=== PATIENT | female | born 1965 | race African-American/Black ===

== ENCOUNTER 2016-10-06 13:56 | Emergency (ER) | payer OTHER ==
[~2016-10-06] VITALS: Ht 165.1 cm; Wt 65.8 kg
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
[~2016-10-06 13:56] MED LIST: BACTRIM DS TABL1 TA1 PO; BACTROBAN22 GM TOP; BACTROBAN22 GM TP; BETAMETHASONE D30 ML TOP; BP MED; IBUPROFEN600 MG PO; MEDROL4 MG/DOSE- PO; NAPROSYN500 MG PO; STERAPRED5 MG/DOSE1; TRIAMCINOLONE AC1 GM TD; VISTARIL PO; [UNRECOGNIZED DRUG - OTHER]
[2016-10-06] MEDS ORDERED: DOXEPIN HCL25 MG PO (14:42)
[2016-10-06] MEDS ORDERED: FLUOXETINE HCL40 M1 PO (14:42)
[2016-10-06] MEDS ORDERED: NEURONTIN800 MG PO (14:42)
[2016-10-06] MEDS ORDERED: PATIENT'S PHARMACY (14:42)
[2016-10-06] MEDS ORDERED: SEROQUEL PO (14:43)
[2016-10-06] MEDS ORDERED: HYDROXYZINE HCL25 M1 PO (14:43)
[2016-10-06 15:08] LABS: BASOPHIL# 0.1 X10e3 (0-0.3); BASOPHIL% 0.8 % (0-2.5); EOSINOPHIL# 0.1 X10e3 (0-0.7); EOSINOPHIL% 0.9 % (0.0-7.0); HEMATOCRIT 32.7 % (35.0-45.0); HEMOGLOBIN 10.6 gm/dL (12.0-16.0); LYMPHOCYTE# 2.1 X10e3 (1.0-3.5); LYMPHOCYTE% 22.9 % (17.0-45.0); MEAN CELL VOLUME 87.5 FL (83-96); MEAN CORPUSCULAR HEMOGLOBIN 28.3 PG (28-34); MEAN CORPUSCULAR HGB CONC 32.4 g/dL (30-36); MEAN PLATELET VOLUME 8.1 FL (6.5-11.5); MONOCYTE# 0.4 X10e3 (0-1.0); MONOCYTE% 4.7 % (3.0-12.0); NEUTROPHIL# 6.6 X10e3 (1.5-7.1); NEUTROPHIL% 70.7 % (40-75); PLATELET COUNT 357 X10e3 (140-420); RED BLOOD COUNT 3.74 X10e (3.90-5.30); WHITE BLOOD COUNT 9.3 X10e3 (4.0-10.5)
[2016-10-06 15:09] LABS: DIFF IND NO
[2016-10-06 15:33] LABS: ALBUMIN SERUM 4.2 g/dL (3.5-5.0); BILIRUBIN, DIRECT 0.1 mg/dL (0.0-0.2); BILIRUBIN,INDIRECT 0.5 mg/dL (0.0-0.9); BILIRUBIN,TOTAL 0.6 mg/dL (0.2-2.0); BUN/CREATININE RATIO 23.33; CALCIUM SERUM 8.8 mg/dL (8.4-10.2); CREATININE SERUM 0.6 mg/dL (0.6-1.4); GLOM FILT RATE Estimated 121.5 mL/min (>60); POTASSIUM 3.3 mmol/L (3.5-5.1); PROTEIN TOTAL SERUM 8.1 g/dL (6.0-8.3)
[2016-10-06 15:35] LABS: AMPHETAMINE NEG (NEG); BARBITURATES NEG (NEG); BENZODIAZEPINES NEG (NEG); COCAINE POS (NEG); MARIJUANA NEG (NEG); OPIATES NEG (NEG); TRICYCLIC ANTIDEPRESSANTS NEG (NEG); U METHADONE NEG (NEG)
== END 2016-10-06 21:40 | disposition home or self-care (01) ==
LOC: CED 13:56
PROVIDERS: Emergency Medicine
DX: S02.81XA Fracture of other specified skull and facial bones, right side, initial encounter for closed fracture (principal); S02.2XXA Fracture of nasal bones, initial encounter for closed fracture; F10.129 Alcohol abuse with intoxication, unspecified; F17.210 Nicotine dependence, cigarettes, uncomplicated; Y90.8 Blood alcohol level of 240 mg/100 ml or more; Y08.89XA Assault by other specified means, initial encounter; Y92.009 Unspecified place in unspecified non-institutional (private) residence as the place of occurrence of the external cause
CPT/HCPCS: 36415; 70450; 70486; 71010; 72125; 80048; 80076; 80307; 83690; 85025; 96365; 99284; G0480; J3411; J3475

== ENCOUNTER 2016-10-06 23:00 | Inpatient (IN) | payer OTHER ==
[~2016-10-06] VITALS: Ht 165.1 cm; Wt 65.8 kg
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
--- NOTE | ~2016-10-06 | PN ---
Unit #: [id number] #: [id number] Patient: JULIETA BERNAL [id number] [facility] [address] [place] [address] [id number] I MR#: [id number] NAME: JULIETA BERNAL ROOM: [facility] Age: 51 Sex: F Admission Date: 10/07/2016 : 1965 Attending Physician: Lawrence Yi M.D. Admitting Physician: Lawrence Yi M.D. Primary Care Physician: Paola [facility] PROGRESS NOTES DATE 10/08/2016 DISCUSSION The patient is complaining of inability to breathe through her nose and ongoing facial pain. It is my feeling that she is probably in need of reassessment by role of facial surgery, and we will send her out for reevaluation. She continues to complain of dysphoric mood but is denying suicidal ideation. Dictated by... Lawrence Yi M.D. CB/bzg TD: 10/08/2016 13:26 JOB #: [id number] [facility] PROGRESS NOTES Page 1 of 1 X Lawrence Yi MD X PROGRESS NOTE
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
[~2016-10-06 23:00] MED LIST changes: +DOXEPIN HCL25 MG PO; +FLUOXETINE HCL40 M1 PO; +HYDROXYZINE HCL25 M1 PO; +NEURONTIN800 MG PO; +PATIENT'S PHARMACY; +SEROQUEL PO
[2016-10-07 09:53] LABS: BASOPHIL# 0.1 X10e3 (0-0.3); BASOPHIL% 0.7 % (0-2.5); EOSINOPHIL# 0.2 X10e3 (0-0.7); EOSINOPHIL% 2.7 % (0.0-7.0); HEMATOCRIT 29.3 % (35.0-45.0); HEMOGLOBIN 9.8 gm/dL (12.0-16.0); LYMPHOCYTE% 30.2 % (17.0-45.0); MEAN CELL VOLUME 87.3 FL (83-96); MEAN CORPUSCULAR HEMOGLOBIN 29.2 PG (28-34); MEAN CORPUSCULAR HGB CONC 33.5 g/dL (30-36); MEAN PLATELET VOLUME 8.4 FL (6.5-11.5); MONOCYTE# 0.5 X10e3 (0-1.0); NEUTROPHIL# 3.9 X10e3 (1.5-7.1); NEUTROPHIL% 58.4 % (40-75); PLATELET COUNT 272 X10e3 (140-420); RED BLOOD COUNT 3.36 X10e (3.90-5.30); RED CELL DISTRIBUTION WIDTH 16.9 % (11.0-15.5); WHITE BLOOD COUNT 6.7 X10e3 (4.0-10.5)
[2016-10-07 09:54] LABS: DIFF IND NO
[2016-10-07 10:04] LABS: ALBUMIN SERUM 3.5 g/dL (3.5-5.0); BILIRUBIN,TOTAL 0.7 mg/dL (0.2-2.0); BUN/CREATININE RATIO 16.66; CALCIUM SERUM 9.1 mg/dL (8.4-10.2); CREATININE SERUM 0.6 mg/dL (0.6-1.4); GLOM FILT RATE Estimated 121.5 mL/min (>60); POTASSIUM 3.9 mmol/L (3.5-5.1); PROTEIN TOTAL SERUM 6.7 g/dL (6.0-8.3)
[2016-10-08 12:37] LABS: URINE APPEARANCE CLEAR; URINE BILIRUBIN NEG (NEG); URINE BLOOD NEG (NEG); URINE COLOR DK YELLOW; URINE GLUCOSE NEG (NEG); URINE KETONE NEG (NEG); URINE LEUKOCYTE ESTERASE NEG (NEG); URINE NITRATE NEG (NEG); URINE PROTEIN NEG (NEG); URINE SPECIFIC GRAVITY 1.019 (1.003-1.035); URINE UROBILINOGEN 0.2 MG/DL (NEG)
[2016-10-08 13:10] LABS: AMPHETAMINE NEG (NEG); BARBITURATES NEG (NEG); BENZODIAZEPINES POS (NEG); COCAINE POS (NEG); MARIJUANA POS (NEG); OPIATES NEG (NEG); TRICYCLIC ANTIDEPRESSANTS NEG (NEG); U METHADONE NEG (NEG)
== END 2016-10-10 11:40 | disposition home or self-care (01) | DRG 897 ==
LOC: P1E 10-07 01:11
PROVIDERS: Specialist
PROC: HZ2ZZZZ Detoxification Services for Substance Abuse Treatment (ICD-10-PCS; principal; 2016-10-07)
DX: F10.10 Alcohol abuse, uncomplicated (principal); F34.1 Dysthymic disorder; F12.10 Cannabis abuse, uncomplicated; Z88.0 Allergy status to penicillin; F17.210 Nicotine dependence, cigarettes, uncomplicated; Y90.8 Blood alcohol level of 240 mg/100 ml or more
CPT/HCPCS: 80053; 80307; 81003; 85025; 86592